=== PATIENT | male | born 1995 | race African-American/Black ===

== ENCOUNTER 2019-12-07 02:55 | Emergency (ER) | payer SELFPAY ==
[~2019-12-07] VITALS: Ht 188 cm; Wt 83.9 kg
[2019-12-07] MEDS ORDERED: OLANZAPINE 10 MG VIAL IM ONE (02:59)
--- NOTE | 2019-12-07 03:05 | NUR ---
PT BIBRA AND [employer] FOR BEHAVIORAL. PER [employer] PT WALKED UP TO [employer] SUP AND STATED HE IS SUICIDAL. UPON ASSESSMENT PT STATED HE IS NOT SUICIDAL NOR HI. DENIES PAIN. NO ACUTE DISTRESS NOTED. PT AMBULATED WITH STEADY GAIT. ABLE TO FOLLOW COMMANDS. PT PALCED IN BED 15 ON MONITOR AND PULSE OX. VSS. AWAITING MD FOR EVAL AND ORDERS.
[2019-12-07] MEDS: OLANZAPINE 10 MG VIAL IM ONE (03:11)
[2019-12-07 03:27] LABS: BASOPHILS # (AUTO) 0.1 /CMM (0.0-0.2); BASOPHILS % (AUTO) 0.6 % (0.0-2.0); EOSINOPHILS % (AUTO) 0.5 % (0.0-6.0); HEMATOCRIT 45 % (39-51); HEMOGLOBIN 14.9 g/dL (13.5-17.5); LYMPHOCYTES # (AUTO) 2.5 /CMM (0.8-4.8); LYMPHOCYTES % (AUTO) 25.4 % (20.0-44.0); MEAN CORPUSCULAR HGB CONC 33 g/dl (31.0-36.0); MEAN CORPUSCULAR VOLUME 91 fL (80-96); MONOCYTES # (AUTO) 0.6 /CMM (0.1-1.30); MONOCYTES % (AUTO) 6.2 % (2.0-12.0); NEUTROPHILS # (AUTO) 6.7 /CMM (1.8-8.9); NEUTROPHILS % (AUTO) 67.3 % (43.0-81.0); PLATELET COUNT (AUTO) 221 /CMM (150-450); RED BLOOD CELL COUNT(AUTO) 4.92 MIL/uL (4.5-6.0)
[2019-12-07 03:46] LABS: ALANINE AMINOTRANSFERASE 22 U/L (12-78); ALBUMIN 4.2 g/dL (3.4-5.0); ALCOHOL, BLOOD < 3 mg/dL (0-0); ALKALINE PHOSPHATASE 63 U/L (46-116); ASPARTATE AMINOTRANSFERASE 21 U/L (15-37); BILIRUBIN,DIRECT 0.1 mg/dL (0.0-0.2); BILIRUBIN,TOTAL 0.4 mg/dL (0.2-1.0); CALCIUM, SERUM 9.6 mg/dL (8.5-10.1); CARBON DIOXIDE 29 mmol/L (21-32); CHLORIDE 103 mmol/L (98-107); CREATININE 0.8 mg/dL (0.6-1.3); GLUCOSE 110 mg/dL (74-106); POTASSIUM 3.7 mmol/L (3.5-5.1); SODIUM SERUM 140 mmol/L (136-145); TOTAL PROTEIN, SERUM 7.2 g/dL (6.4-8.2); UREA NITROGEN, BLOOD 10 mg/dL (7-18)
[2019-12-07 03:50] LABS: ACETAMINOPHEN 0 ug/ml (10-30); SALICYLATE 0.6 mg/dL (2.8-20.0)
[2019-12-07 04:29] LABS: APPEARANCE,URINE Clear (CLEAR); BILIRUBIN,URINE Negative (NEGATIVE); BLOOD, URINE Negative Ery/uL (NEGATIVE); COLOR,URINE Yellow (YELLOW); KETONES,URINE Negative (NEGATIVE); LEUKOCYTE ESTERASE ,URINE Negative (NEGATIVE); NITRITE, URINE Negative (NEGATIVE); PH,URINE 8.5 (5.0-8.0); PROTEIN,URINE 30 mg/dl (NEGATIVE); UGLUCOSE Negative (NEGATIVE); UROBILINOGEN,URINE 0.2 EU/dL (0.2)
[2019-12-07 04:45] LABS: BACTERIA,URINE None seen /HPF (None Seen); SQUAMOUS EPITHELIAL CELL,UR Few /HPF (None Seen)
[2019-12-07 04:46] LABS: MUCUS,URINE Moderate /LPF (None Seen); URINE AMORPHOUS PHOSPHATES Many /HPF (None Seen)
--- NOTE | 2019-12-07 05:10 | NUR ---
PT AAOX4. AMBULATED TO THE RESTROOM. PER ASSESSMENT PT STATED HE IS NOT SI NOR HI. VSS. AWARE.
--- NOTE | 2019-12-07 05:36 | NUR ---
Patient discharged to home in stable condition. Written and verbal after care instructions given. Patient verbalizes understanding of instruction. Pt ambulated with steady gait. vss.
[2019-12-07 05:37] VITALS: BP 117/72
== END 2019-12-07 05:37 | disposition home or self-care (01) ==
LOC: ER 02:57
DX: F15.10 Other stimulant abuse, uncomplicated (principal)
CPT/HCPCS: 36415; 80048; 80076; 80305; 80307; 80329; 81001; 85025; 96372; 99283; G0480; J3490; 81000-TC

== ENCOUNTER 2020-01-02 11:47 | Emergency (ER) | payer SELFPAY ==
[~2020-01-02] VITALS: Ht 188 cm; Wt 83.9 kg
[2020-01-02] MEDS ORDERED: OLANZAPINE 10 MG VIAL IM ONE ×2 (12:00→12:05)
[2020-01-02 12:04] LABS: BASOPHILS % (AUTO) 0.6 % (0.0-2.0); EOSINOPHILS % (AUTO) 1.2 % (0.0-6.0); HEMATOCRIT 39 % (39-51); HEMOGLOBIN 13.4 g/dL (13.5-17.5); LYMPHOCYTES # (AUTO) 1.6 /CMM (0.8-4.8); LYMPHOCYTES % (AUTO) 20.1 % (20.0-44.0); MEAN CORPUSCULAR HGB CONC 34 g/dl (31.0-36.0); MEAN CORPUSCULAR VOLUME 90 fL (80-96); MONOCYTES # (AUTO) 0.6 /CMM (0.1-1.30); MONOCYTES % (AUTO) 6.9 % (2.0-12.0); NEUTROPHILS # (AUTO) 5.8 /CMM (1.8-8.9); NEUTROPHILS % (AUTO) 71.2 % (43.0-81.0); PLATELET COUNT (AUTO) 213 /CMM (150-450); RED BLOOD CELL COUNT(AUTO) 4.34 MIL/uL (4.5-6.0); WHITE BLOOD COUNT (AUTO) 8.1 K/uL (4.3-11.0)
[2020-01-02 12:13] LABS: CALCIUM, SERUM 9.2 mg/dL (8.5-10.1); CARBON DIOXIDE 24 mmol/L (21-32); CHLORIDE 107 mmol/L (98-107); CREATININE 0.7 mg/dL (0.6-1.3); GLUCOSE 90 mg/dL (74-106); POTASSIUM 3.3 mmol/L (3.5-5.1); SODIUM SERUM 141 mmol/L (136-145); UREA NITROGEN, BLOOD 13 mg/dL (7-18)
[2020-01-02 12:18] LABS: ALANINE AMINOTRANSFERASE 25 U/L (12-78); ALCOHOL, BLOOD 13 mg/dL (0-0); ALKALINE PHOSPHATASE 58 U/L (46-116); ASPARTATE AMINOTRANSFERASE 26 U/L (15-37); BILIRUBIN,DIRECT 0.3 mg/dL (0.0-0.2); BILIRUBIN,TOTAL 1.5 mg/dL (0.2-1.0); TOTAL PROTEIN, SERUM 7.1 g/dL (6.4-8.2)
--- NOTE | 2020-01-02 12:21 | NUR ---
BIBRA FROM THE STREET TO ER BED 6. AAOX3. NOT IN RESP DISTRESS, BREATHING EVEN AND UNLABORED. BROUGHT IN FOR BIZAARE BEHAVIOR AFTER BEING FOUND ON THE STREET. PT DENIES TO BE SUICIDAL NOR HOMICIDAL. PER REPORT, PT WAS IN THE STREET ACTING WEIRDLY. WAS AT THE BEDSIDE FOR EVAL.
[2020-01-02 12:22] LABS: ACETAMINOPHEN < 10 ug/ml (10-30); SALICYLATE < 2.8 mg/dL (2.8-20.0)
--- NOTE | 2020-01-02 13:30 | NUR ---
PT IN BED SLEEPING COMFORTABLE. BREATHING EVEN AND UNLABORED.
--- NOTE | 2020-01-02 15:50 | NUR ---
aware that urine has not yet been collected because pt is sleeping. nad noted
--- NOTE | 2020-01-02 16:20 | NUR ---
Cafe Aide met with the patient at bedside, pt was alert and orientatedx4. Patient is a homeless 24 year-old male. Patient denies alcohol and drug use. Patient denies suicidal/homicidial ideations. Patient would like resources for fci, food, and income. This SW to provide patient with this. SW to remain available for all needs.
--- NOTE | 2020-01-02 18:48 | NUR ---
PT IN BED SLEEPING. NAD NOTED
--- NOTE | 2020-01-02 19:08 | NUR ---
REPORT GIVEN TO UMESH MANUEL FOR DAKOTAH.
--- NOTE | 2020-01-02 21:01 | NUR ---
CALLED LAB REGARDING RUNNING URINE.
[2020-01-02 21:05] LABS: APPEARANCE,URINE Clear (CLEAR); BILIRUBIN,URINE SMALL (NEGATIVE); BLOOD, URINE Negative Ery/uL (NEGATIVE); KETONES,URINE Negative (NEGATIVE); LEUKOCYTE ESTERASE ,URINE Negative (NEGATIVE); NITRITE, URINE Negative (NEGATIVE); PH,URINE 5.5 (5.0-8.0); PROTEIN,URINE Trace mg/dl (NEGATIVE); UGLUCOSE Negative (NEGATIVE)
[2020-01-02 21:10] LABS: COLOR,URINE DARK YELLOW (YELLOW)
[2020-01-02 21:24] LABS: RBC,URINE 0-2 /HPF (0-2)
[2020-01-02 21:25] LABS: BACTERIA,URINE None seen /HPF (None Seen); SQUAMOUS EPITHELIAL CELL,UR None Seen /HPF (None Seen); WBC,URINE 0-2 /HPF (0-3)
--- NOTE | 2020-01-02 23:08 | NUR ---
Patient discharged to home in stable condition. Written and verbal after care instructions given. Patient verbalizes understanding of instruction. Pt ambulated with steady gait,. vss.
[2020-01-03 00:46] VITALS: BP 121/58
== END 2020-01-03 00:47 | disposition home or self-care (01) ==
LOC: ER 11:48
DX: F29 Unspecified psychosis not due to a substance or known physiological condition (principal)
CPT/HCPCS: 36415; 80048; 80076; 80305; 80307; 80329; 81001; 85025; 96372; 99285; G0480; J3490; 81000-TC

== ENCOUNTER 2020-01-24 12:32 | Emergency (ER) | payer OTHER ==
[~2020-01-24] VITALS: Ht 182.9 cm; Wt 89.8 kg
--- NOTE | 2020-01-24 12:38 | NUR ---
ARINA Fermin/PD OFFICERS FROM [facility], REPORTS "INTENTIONS TO HURT AND KILL HIMSELF", NO SPECIFIC PLAN AT THIS TIME. TO ER BED 13, HOOKED TO MONITOR, CHANGED TO HOSP GOWN, PROVIDED W WARM BLANKET, PATIENT CALM AND COOPERATIVE. BREATHING EVEN AND UNLABORED. SAFETY PRECAUTIONS APPLIED. SITTER AT BEDSIDE FOR SAFETY. DR STEVEN AT BEDSIDE FOR EVAL.
--- NOTE | 2020-01-24 12:49 | NUR ---
URINE SAMPLE COLLECTED AND SENT TO LAB
[2020-01-24 13:08] LABS: BASOPHILS % (AUTO) 0.5 % (0.0-2.0); HEMATOCRIT 41 % (39-51); HEMOGLOBIN 13.6 g/dL (13.5-17.5); LYMPHOCYTES # (AUTO) 2.2 /CMM (0.8-4.8); LYMPHOCYTES % (AUTO) 31.7 % (20.0-44.0); MEAN CORPUSCULAR HGB CONC 33 g/dl (31.0-36.0); MEAN CORPUSCULAR VOLUME 92 fL (80-96); MONOCYTES # (AUTO) 0.6 /CMM (0.1-1.30); MONOCYTES % (AUTO) 8.2 % (2.0-12.0); NEUTROPHILS % (AUTO) 57.6 % (43.0-81.0); PLATELET COUNT (AUTO) 242 /CMM (150-450); RED BLOOD CELL COUNT(AUTO) 4.47 MIL/uL (4.5-6.0); WHITE BLOOD COUNT (AUTO) 6.9 K/uL (4.3-11.0)
[2020-01-24 13:10] LABS: APPEARANCE,URINE Clear (CLEAR); BILIRUBIN,URINE Negative (NEGATIVE); BLOOD, URINE Negative Ery/uL (NEGATIVE); COLOR,URINE Yellow (YELLOW); KETONES,URINE Negative (NEGATIVE); LEUKOCYTE ESTERASE ,URINE Negative (NEGATIVE); NITRITE, URINE Negative (NEGATIVE); PROTEIN,URINE Negative (NEGATIVE); UGLUCOSE Negative (NEGATIVE)
[2020-01-24 13:14] LABS: CALCIUM, SERUM 8.8 mg/dL (8.5-10.1); CARBON DIOXIDE 29 mmol/L (21-32); CHLORIDE 108 mmol/L (98-107); CREATININE 0.7 mg/dL (0.6-1.3); GLUCOSE 90 mg/dL (74-106); POTASSIUM 3.6 mmol/L (3.5-5.1); SODIUM SERUM 144 mmol/L (136-145); UREA NITROGEN, BLOOD 9 mg/dL (7-18)
[2020-01-24 13:17] LABS: BACTERIA,URINE Rare /HPF (None Seen); RBC,URINE 0-2 /HPF (0-2); SQUAMOUS EPITHELIAL CELL,UR None Seen /HPF (None Seen); WBC,URINE 0-2 /HPF (0-3)
[2020-01-24 13:20] LABS: ALANINE AMINOTRANSFERASE 22 U/L (12-78); ALBUMIN 4.1 g/dL (3.4-5.0); ALKALINE PHOSPHATASE 72 U/L (46-116); ASPARTATE AMINOTRANSFERASE 16 U/L (15-37); BILIRUBIN,DIRECT 0.1 mg/dL (0.0-0.2); BILIRUBIN,TOTAL 0.5 mg/dL (0.2-1.0)
[2020-01-24 13:21] LABS: ACETAMINOPHEN 0 ug/ml (10-30); ALCOHOL, BLOOD < 3 mg/dL (0-0); SALICYLATE 0.8 mg/dL (2.8-20.0)
--- NOTE | 2020-01-24 14:25 | NUR ---
2:00pm This SW met with the patient at bedside. With the assistance of the sitter, patient answered this SW questions. Patient presented to [facility] ER by rescue ambulance and police. Per MD notes, patient reports intentions to hurt and kill somebody. Patient denies a mental health diagnosis. Patient denies auditory and visual hallucinations. Patient reports current suicidal ideation of injuring myself but does not report a method stating I dont know. This SW asked the patient if he would be willing to enter voluntary psychiatric treatment, patient was receptive to this plan of treatment stating "yes". This SW contacted admitting for presumptive Medical and this SW contacted José Miguel at [facility] to help further the voluntary hospitalization treatment. Pending presumptive Medical to fax clinicals to [facility] Intake .
--- NOTE | 2020-01-24 14:51 | NUR ---
PATIENT IN BED ASLEEP, EASILY AROUSABLE BY VOICE. HOOKED TO MONITOR. VSS. WILL CONTINUE TO MONITOR. SITTER AT BEDSIDE FOR SAFETY.
--- NOTE | 2020-01-24 15:38 | NUR ---
Methods Analyst contacted Admitting [phone] about patient's presumptive Medical. This SW was informed that patient has [facility]. This SW to contact José Miguel at [facility] to have them run patient benefits.
--- NOTE | 2020-01-24 15:47 | NUR ---
This SW faxed clinicals to [facility] .
--- NOTE | 2020-01-24 15:47 | NUR ---
José Miguel at [facility] verified benefits and asked this SW to fax over clinicals regarding this patient.
--- NOTE | 2020-01-24 16:42 | NUR ---
PATIENT IN BED ASLEEP, TUCKED IN BLANKET, EASILY AROUSABLE BY VOICE. HOOKED TO MONITOR. VSS. WILL CONTINUE TO MONITOR. SITTER AT BEDSIDE FOR SAFETY.
--- NOTE | 2020-01-24 17:27 | NUR ---
ACCEPTED AT [facility] DR. NOLASCO NURSING FINANCIAL ANALYSIS CONSULTANT PHONE FOR REPORT #[phone] EXT [phone]
--- NOTE | 2020-01-24 17:32 | NUR ---
CALLED [facility] FOR BLS HUMAN RESOURCE OFFICER. ETA [phone]
--- NOTE | 2020-01-24 17:33 | NUR ---
REPORT GIVEN TO [facility].
[2020-01-24 19:05] VITALS: BP 101/62
--- NOTE | 2020-01-24 19:05 | NUR ---
ENDORSEMENT GIVEN TO DARYL CALVO FOR DAKOTAH
--- NOTE | 2020-01-24 19:42 | NUR ---
brook in facility, report given to transport. all papers given. pt to be transported to [facility] for vol psych. pt remains stable. -sob. -cp. vss. not in any acute distress.
== END 2020-01-24 19:56 ==
LOC: ER 12:40
DX: R45.851 Suicidal ideations (principal); F32.9 Major depressive disorder, single episode, unspecified; Z59.0 Homelessness
CPT/HCPCS: 36415; 80048; 80076; 80305; 80307; 80329; 81001; 85025; 99285; G0480; 81000-TC

== ENCOUNTER 2020-02-08 02:19 | Emergency (ER) | payer OTHER ==
[~2020-02-08] VITALS: Ht 188 cm; Wt 86.2 kg
--- NOTE | 2020-02-08 02:22 | NUR ---
PT AAOX4. BIBRA 80 FROM [facility] WITH PLAN TO "JUMP OFF A BRIDGE." PT PLACED IN BED 15 ON MONITOR AND PULSE OX. SITTER AT BEDSIDE. PT PLACED IN HOSPITAL GOWN, BELONGINGS PLACED IN LOCKER.
--- NOTE | 2020-02-08 02:43 | NUR ---
URINE COLLECTED AND SENT TO LAB
[2020-02-08 02:48] LABS: BASOPHILS % (AUTO) 0.2 % (0.0-2.0); EOSINOPHILS % (AUTO) 1.4 % (0.0-6.0); HEMATOCRIT 45 % (39-51); HEMOGLOBIN 15.1 g/dL (13.5-17.5); LYMPHOCYTES # (AUTO) 1.3 /CMM (0.8-4.8); LYMPHOCYTES % (AUTO) 11.8 % (20.0-44.0); MEAN CORPUSCULAR HGB CONC 34 g/dl (31.0-36.0); MEAN CORPUSCULAR VOLUME 91 fL (80-96); MONOCYTES # (AUTO) 0.8 /CMM (0.1-1.30); MONOCYTES % (AUTO) 7.1 % (2.0-12.0); NEUTROPHILS # (AUTO) 8.4 /CMM (1.8-8.9); NEUTROPHILS % (AUTO) 79.5 % (43.0-81.0); PLATELET COUNT (AUTO) 233 /CMM (150-450); RED BLOOD CELL COUNT(AUTO) 4.95 MIL/uL (4.5-6.0); WHITE BLOOD COUNT (AUTO) 10.6 K/uL (4.3-11.0)
--- NOTE | 2020-02-08 03:01 | NUR ---
SUPERVISOR FRAME ASSEMBLY AT BEDSIDE FOR LABS
[2020-02-08 03:04] LABS: ALANINE AMINOTRANSFERASE 17 U/L (12-78); ALBUMIN 4.1 g/dL (3.4-5.0); ALCOHOL, BLOOD < 3 mg/dL (0-0); ALKALINE PHOSPHATASE 74 U/L (46-116); ASPARTATE AMINOTRANSFERASE 15 U/L (15-37); BILIRUBIN,DIRECT 0.2 mg/dL (0.0-0.2); BILIRUBIN,TOTAL 1.1 mg/dL (0.2-1.0); CALCIUM, SERUM 9.4 mg/dL (8.5-10.1); CARBON DIOXIDE 26 mmol/L (21-32); CHLORIDE 105 mmol/L (98-107); CREATININE 0.7 mg/dL (0.6-1.3); GLUCOSE 94 mg/dL (74-106); POTASSIUM 3.9 mmol/L (3.5-5.1); SODIUM SERUM 141 mmol/L (136-145); TOTAL PROTEIN, SERUM 7.6 g/dL (6.4-8.2); UREA NITROGEN, BLOOD 6 mg/dL (7-18)
[2020-02-08 03:09] LABS: ACETAMINOPHEN 0 ug/ml (10-30); SALICYLATE < 0.2 mg/dL (2.8-20.0)
[2020-02-08 03:12] LABS: APPEARANCE,URINE CLEAR (CLEAR); BILIRUBIN,URINE NEGATIVE (NEGATIVE); BLOOD, URINE NEGATIVE Ery/uL (NEGATIVE); COLOR,URINE YELLOW (YELLOW); KETONES,URINE NEGATIVE (NEGATIVE); LEUKOCYTE ESTERASE ,URINE NEGATIVE (NEGATIVE); NITRITE, URINE NEGATIVE (NEGATIVE); PROTEIN,URINE 30 mg/dl (NEGATIVE); UGLUCOSE NEGATIVE (NEGATIVE); UROBILINOGEN,URINE 0.2 EU/dL (0.2)
[2020-02-08 03:26] LABS: BACTERIA,URINE Few /HPF (None Seen); SPERM,URINE Few /HPF (None Seen); SQUAMOUS EPITHELIAL CELL,UR Rare /HPF (None Seen)
--- NOTE | 2020-02-08 04:05 | NUR ---
Patient is resting comfortably in bed with eyes closed. Easily aroused. VSS.
--- NOTE | 2020-02-08 05:50 | NUR ---
CLINICAL FAXED TO [facility] FOR VOLUNTARY PSYCH ADMISSION.
--- NOTE | 2020-02-08 06:22 | NUR ---
CLINICAL UNDER REVIEW PER CALVIN AT [facility].
--- NOTE | 2020-02-08 07:05 | NUR ---
[facility] INTAKE OF [facility]NER DENIES PT TRANSFER AT THIS TIME.
--- NOTE | 2020-02-08 08:21 | NUR ---
This SW met with the patient at bedside. Patient answered this SW questions. Patient presented to [facility] ER by rescue ambulance and police. Per MD notes, patient reports patient wants to jump off a bridge. Patient denies a mental health diagnosis. Patient denies auditory and visual hallucinations. Patient asked this SW to return to [facility]. This SW to contact José Miguel at [facility] as patient was denied overnight. SW to remain available for all needs regarding this patient.
--- NOTE | 2020-02-08 09:26 | NUR ---
PER THOMAS RENE, PATIENT IS ACCEPTED AT [facility] BY DR. MEJIA GIVE REPORT AT 10AM [phone] EXT [phone]
--- NOTE | 2020-02-08 11:51 | NUR ---
Per Bhakti Massey ambulance for BLS transport eta is [phone]
--- NOTE | 2020-02-08 12:19 | NUR ---
updated transport eta is [phone]
[2020-02-08 13:58] VITALS: BP 133/59
--- NOTE | 2020-02-08 13:58 | NUR ---
REPORT GIVEN TO ZAIRE CALVO FOR DAKOTAH.
--- NOTE | 2020-02-08 13:59 | NUR ---
REPORT GIVEN TO FLIGHT DIRECTOR. PATIENT A/OX4, AMBULATORY WITH STEADY GAIT. NO DISTRESS NOTED. PATIENT TRANSFERRED TO [facility] IN STABLE CONDITION.
== END 2020-02-08 14:03 ==
LOC: ER 02:19
DX: R45.851 Suicidal ideations (principal); R45.1 Restlessness and agitation; Z59.0 Homelessness
CPT/HCPCS: 36415; 80048; 80076; 80305; 80307; 80329; 81001; 85025; 87086; 99285; G0480; 81000-TC

== ENCOUNTER 2021-05-28 21:11 | Emergency (ER) | payer OTHER ==
[~2021-05-28] VITALS: Ht 188 cm; Wt 97.5 kg
--- NOTE | 2021-05-28 21:48 | NUR ---
ARINA AND [employer] TO ER BED 11. AAOX4. NOT IN RESP DISTRESS. AMBULATORY. BROUGHT SEEKING FOR VOLUNTARY ADMISSION FOR SUICIDAL IDEATION WHERE HE IS HEARING VOICES TELLING HIM TO JUMP OFF A BRIDGE. PT CAME TO FIRE STATION SEEKING TO BE BROUGHT TO THE HOSPITAL. WAS AT THE BEDSIDE FOR EVAL.
[2021-05-28 22:15] LABS: BASOPHILS # (AUTO) 0.1 K/uL (0.0-0.2); BASOPHILS % (AUTO) 0.7 % (0.0-2.0); EOSINOPHILS % (AUTO) 1.7 % (0.0-6.0); HEMATOCRIT 42 % (39-51); HEMOGLOBIN 14.1 g/dL (13.5-17.5); LYMPHOCYTES % (AUTO) 27.2 % (20.0-44.0); MEAN CORPUSCULAR HGB CONC 34 g/dl (31.0-36.0); MEAN CORPUSCULAR VOLUME 91 fL (80-96); MONOCYTES # (AUTO) 0.7 K/uL (0.1-1.30); MONOCYTES % (AUTO) 8.9 % (2.0-12.0); NEUTROPHILS # (AUTO) 4.6 K/uL (1.8-8.9); NEUTROPHILS % (AUTO) 61.5 % (43.0-81.0); PLATELET COUNT (AUTO) 243 K/uL (150-450); RED BLOOD CELL COUNT(AUTO) 4.61 MIL/uL (4.5-6.0); WHITE BLOOD COUNT (AUTO) 7.5 K/uL (4.3-11.0)
[2021-05-28 22:26] LABS: BILIRUBIN,URINE NEGATIVE (NEGATIVE); COLOR,URINE YELLOW (YELLOW); LEUKOCYTE ESTERASE ,URINE NEGATIVE (NEGATIVE); NITRITE, URINE NEGATIVE (NEGATIVE); PROTEIN,URINE NEGATIVE (NEGATIVE); UGLUCOSE NEGATIVE (NEGATIVE); UROBILINOGEN,URINE 0.2 EU/dL (0.2)
[2021-05-28 22:26] LABS: CALCIUM, SERUM 8.9 mg/dL (8.5-10.1); CARBON DIOXIDE 26 mmol/L (21-32); CHLORIDE 106 mmol/L (98-107); CREATININE 0.9 mg/dL (0.6-1.3); GLUCOSE 103 mg/dL (74-106); POTASSIUM 3.5 mmol/L (3.5-5.1); SODIUM SERUM 141 mmol/L (136-145); UREA NITROGEN, BLOOD 12 mg/dL (7-18)
[2021-05-28 22:34] LABS: ALANINE AMINOTRANSFERASE 35 U/L (12-78); ALBUMIN 3.9 g/dL (3.4-5.0); ALKALINE PHOSPHATASE 59 U/L (46-116); ASPARTATE AMINOTRANSFERASE 18 U/L (15-37); BILIRUBIN,DIRECT 0.1 mg/dL (0.0-0.2); BILIRUBIN,TOTAL 0.5 mg/dL (0.2-1.0); TOTAL PROTEIN, SERUM 7.1 g/dL (6.4-8.2)
[2021-05-28 22:35] LABS: ACETAMINOPHEN 0 ug/ml (10-30); ALCOHOL, BLOOD < 3 mg/dL (0-0)
--- NOTE | 2021-05-28 22:49 | NUR ---
COVID ANTIGEN SWAB COLLECTED AND SENT TO LAB
--- NOTE | 2021-05-29 05:04 | NUR ---
CLINICALS FAXED TO [facility]
--- NOTE | 2021-05-29 08:02 | NUR ---
CALLED [facility] THEY HAVE THE CLINICALS AND AWAITING FEEDBACK.
--- NOTE | 2021-05-29 09:52 | NUR ---
PATIENT IN BED, AWAKE, ON MONITOR, VSS. SITTER AT BEDSIDE FOR SAFETY.
[2021-05-29 10:06] VITALS: BP 136/69
--- NOTE | 2021-05-29 10:32 | NUR ---
PATIENT VERBALIZES THAT HE IS NO LONGER SUICIDAL AND WOULD LIKE TO GO HOME. MADE DR MURCIA AWARE.
--- NOTE | 2021-05-29 11:01 | NUR ---
Patient eloped from facility. ER MD notified.
== END 2021-05-29 11:42 | disposition left against medical advice (07) ==
LOC: ER 21:13
DX: F23 Brief psychotic disorder (principal); R45.851 Suicidal ideations; Z59.02 Unsheltered homelessness; Z20.822 Contact with and (suspected) exposure to COVID-19; Z53.29 Procedure and treatment not carried out because of patient's decision for other reasons; F12.10 Cannabis abuse, uncomplicated
CPT/HCPCS: 36415; 80048; 80076; 80143; 80307; 80320; 81003; 85025; 87426; 99285; C9803; G0480

== ENCOUNTER 2021-09-09 02:22 | Emergency (ER) | payer OTHER ==
[~2021-09-09] VITALS: Ht 188 cm; Wt 88.5 kg
--- NOTE | 2021-09-09 02:39 | NUR ---
URINE SAMPLE COLLECTED AND SENT TO LAB
--- NOTE | 2021-09-09 02:40 | NUR ---
COVID ANTIGEN SWAB COLLECTED AND SENT TO LAB
--- NOTE | 2021-09-09 02:49 | NUR ---
BIBRA FROM THE STREET TO ER BED 18. AAOX4. NOT IN RESP DISTRESS. AMBULATORY. BROUGHT IN FOR SUICIDAL IDEATION WITH PLAN TO JUMP OFF A BRIDGE. DENIES HOMICIDAL IDEATION.PT IS GOWNED, BELONGINGS PALCED IN LOCKER AND SITTER WITHIN SIGHT. WAS AT THE BEDSIDE FOR EVAL. ORDERS RECEIVED, NOTED AND CARRIED OUT
[2021-09-09 03:00] LABS: BILIRUBIN,URINE NEGATIVE (NEGATIVE); COLOR,URINE YELLOW (YELLOW); LEUKOCYTE ESTERASE ,URINE NEGATIVE (NEGATIVE); NITRITE, URINE NEGATIVE (NEGATIVE); PROTEIN,URINE NEGATIVE (NEGATIVE); UGLUCOSE NEGATIVE (NEGATIVE); UROBILINOGEN,URINE 0.2 EU/dL (0.2)
[2021-09-09 03:02] LABS: BASOPHILS # (AUTO) 0.1 K/uL (0.0-0.2); BASOPHILS % (AUTO) 0.6 % (0.0-2.0); EOSINOPHILS % (AUTO) 2.1 % (0.0-6.0); HEMATOCRIT 47 % (39-51); HEMOGLOBIN 15.5 g/dL (13.5-17.5); LYMPHOCYTES # (AUTO) 2.7 K/uL (0.8-4.8); LYMPHOCYTES % (AUTO) 23.2 % (20.0-44.0); MEAN CORPUSCULAR HGB CONC 33 g/dl (31.0-36.0); MEAN CORPUSCULAR VOLUME 89 fL (80-96); MONOCYTES # (AUTO) 0.9 K/uL (0.1-1.30); MONOCYTES % (AUTO) 7.4 % (2.0-12.0); NEUTROPHILS # (AUTO) 7.8 K/uL (1.8-8.9); NEUTROPHILS % (AUTO) 66.7 % (43.0-81.0); PLATELET COUNT (AUTO) 270 K/uL (150-450); RED BLOOD CELL COUNT(AUTO) 5.24 MIL/uL (4.5-6.0); WHITE BLOOD COUNT (AUTO) 11.7 K/uL (4.3-11.0)
[2021-09-09 03:03] LABS: ALANINE AMINOTRANSFERASE 21 U/L (12-78); ALBUMIN 4.1 g/dL (3.4-5.0); ALKALINE PHOSPHATASE 81 U/L (46-116); ASPARTATE AMINOTRANSFERASE 17 U/L (15-37); BILIRUBIN,TOTAL 0.4 mg/dL (0.2-1.0); CALCIUM, SERUM 9.2 mg/dL (8.5-10.1); CARBON DIOXIDE 27 mmol/L (21-32); CHLORIDE 106 mmol/L (98-107); CREATININE 0.8 mg/dL (0.6-1.3); GLUCOSE 103 mg/dL (74-106); POTASSIUM 4.1 mmol/L (3.5-5.1); SODIUM SERUM 141 mmol/L (136-145); TOTAL PROTEIN, SERUM 7.7 g/dL (6.4-8.2); UREA NITROGEN, BLOOD 11 mg/dL (7-18)
[2021-09-09 03:32] LABS: ACETAMINOPHEN < 2 ug/ml (10-30); ALCOHOL, BLOOD < 3 mg/dL (0-0)
--- NOTE | 2021-09-09 04:14 | NUR ---
PT ASKED TO LEAVE AND DOES NO LONGER FEEL SUICIDAL. PT VERBALIZED THAT HE JUST ONLY WANTED A BED AND FOOD. PT PROVIDED WITH FOOD AND LEFT WITH ALL HIS BELONGINGS. MADE AWARE
[2021-09-09 05:12] VITALS: BP 153/92
== END 2021-09-09 04:14 | disposition home or self-care (01) ==
LOC: ER 02:23
DX: R45.851 Suicidal ideations (principal); Z59.00 Homelessness unspecified; Z20.822 Contact with and (suspected) exposure to COVID-19; F17.200 Nicotine dependence, unspecified, uncomplicated
CPT/HCPCS: 36415; 80048; 80076; 80143; 80307; 80320; 81003; 85025; 87426; 99285; C9803; G0480

== ENCOUNTER 2021-09-11 21:09 | Emergency (ER) | payer OTHER ==
[~2021-09-11] VITALS: Ht 172.7 cm; Wt 93.0 kg
[2021-09-11 21:37] LABS: BASOPHILS # (AUTO) 0.1 K/uL (0.0-0.2); BASOPHILS % (AUTO) 0.6 % (0.0-2.0); EOSINOPHILS % (AUTO) 3.3 % (0.0-6.0); HEMATOCRIT 46 % (39-51); HEMOGLOBIN 15.4 g/dL (13.5-17.5); LYMPHOCYTES # (AUTO) 2.4 K/uL (0.8-4.8); LYMPHOCYTES % (AUTO) 26.6 % (20.0-44.0); MEAN CORPUSCULAR HGB CONC 33 g/dl (31.0-36.0); MEAN CORPUSCULAR VOLUME 89 fL (80-96); MONOCYTES # (AUTO) 0.7 K/uL (0.1-1.30); MONOCYTES % (AUTO) 7.6 % (2.0-12.0); NEUTROPHILS # (AUTO) 5.5 K/uL (1.8-8.9); NEUTROPHILS % (AUTO) 61.9 % (43.0-81.0); PLATELET COUNT (AUTO) 254 K/uL (150-450); WHITE BLOOD COUNT (AUTO) 8.9 K/uL (4.3-11.0)
[2021-09-11 21:45] LABS: CALCIUM, SERUM 8.9 mg/dL (8.5-10.1); CARBON DIOXIDE 27 mmol/L (21-32); CHLORIDE 106 mmol/L (98-107); CREATININE 0.7 mg/dL (0.6-1.3); GLUCOSE 132 mg/dL (74-106); POTASSIUM 3.5 mmol/L (3.5-5.1); SODIUM SERUM 138 mmol/L (136-145); UREA NITROGEN, BLOOD 9 mg/dL (7-18)
--- NOTE | 2021-09-11 21:45 | NUR ---
BIBRA [address] C/O SI WITH NO PLAN ON HOLD BY [employer]. PATIENT ALERT AND ORIENTED X3. AMBULATORY WITH NON LABORED BREATHING IN BED 10 AWAITING MD VELASQUEZ.
--- NOTE | 2021-09-11 21:46 | NUR ---
ER BALLAST INSPECTOR @ BEDSIDE
--- NOTE | 2021-09-11 21:46 | NUR ---
COVID SWAB DONE AND SENT TO LAB
[2021-09-11 21:50] LABS: ALANINE AMINOTRANSFERASE 17 U/L (12-78); ALBUMIN 3.7 g/dL (3.4-5.0); ALCOHOL, BLOOD < 3 mg/dL (0-0); ALKALINE PHOSPHATASE 80 U/L (46-116); ASPARTATE AMINOTRANSFERASE 9 U/L (15-37); BILIRUBIN,DIRECT 0.1 mg/dL (0.0-0.2); BILIRUBIN,TOTAL 0.3 mg/dL (0.2-1.0); TOTAL PROTEIN, SERUM 6.9 g/dL (6.4-8.2)
[2021-09-11 21:53] LABS: ACETAMINOPHEN < 0 ug/ml (10-30)
--- NOTE | 2021-09-11 22:00 | NUR ---
PATIENT STATES HE NOW HAS A PLAN JUMP OFF BRIDGE FOR SUICIDAL ATTEMPT.
--- NOTE | 2021-09-11 22:42 | NUR ---
URINE COLLECTED AND SENT TO LAB
[2021-09-11 22:51] LABS: BILIRUBIN,URINE NEGATIVE (NEGATIVE); COLOR,URINE YELLOW (YELLOW); LEUKOCYTE ESTERASE ,URINE NEGATIVE (NEGATIVE); NITRITE, URINE NEGATIVE (NEGATIVE); PH,URINE 6.5 (5.0-8.0); PROTEIN,URINE NEGATIVE (NEGATIVE); UGLUCOSE NEGATIVE (NEGATIVE)
--- NOTE | 2021-09-11 23:25 | NUR ---
TAHIR- CRISIS BENCH ASSEMBLY INSPECTOR PAGED FOR EVAL.
--- NOTE | 2021-09-12 08:39 | NUR ---
BECKIE ZAZUETA REQUESTED HOLD TO BE FAXED TO [phone]
--- NOTE | 2021-09-12 10:53 | NUR ---
"SS Consult: SS Consult requested for pt. on a 5150 hold. The pt. is a 26 year old male on a 5150 hold for DTS. Per hold pt. stated he wanted to kill himself by jumping off a bridge and was hearing voices. Upon SS Consult the pt. is laying in bed awake, alert & oriented x 4. The pt. appears very disheveled and makes poor eye contact. Pt. has some latency in his speech.The pt. denies SI/HI and states he does experience auditory & visual hallucinations. Pt. thought process is WNL. Pt. remained calm & cooperative throughout interview. Pt. stated he is experiencing homelessness and stays in the [place] area. Pt. denies drug or alcohol abuse. Pt. denies mental health ilness. Pt. states he is ambulatory and independent with all his ADL's. SW explored pt.'s support system. Pt. states he is not in communication with them. Plan: SW provided pt. with homeless resources and pt. accepted them. Pt. refused to sign homeless waiver ad it was placed int he pt.'s chart. MARBIN called Senior Patient Account Representative, Art [phone] to evaluate this pt. Art is agreeable. MARBIN disscussed case with Ralph MUNROE. Year-round shelters: [facility] [address] [place] [address] ; [facility] [address] [place] [address]; [place] [facility] [address] [facility] [address] Winter Shelters: SPA 2 | [facility] Monsterrovider: [facility] Address: Confidential (call for location ) Population Served: Coed # of Beds: 57 SPA 4 | [facility] Provider: [facility] Address: [address] [place] [address] # of Beds: 49 Population Served: Coed SPA 6 | [facility] Provider: [facility] Last Address: [address] [place] [address] # of Beds: 49 Population Served: Coed [facility] Provider: Yoan Barragan DCD Address: [address] [facility] [address] # of Beds: 20 Population Served: Women DAGOBERTO Facility Provider: [facility] Last Address: [address] [facility] [address] # of Beds: 30 Population Served: Women SPA 8 | [facility] Library Provider: Yoon [facility] [place] Address: [address] [facility] [address] # of Beds: 65 Population Served: Coed Hygiene: [facility]: [address] [facility] [facility] ; [facility] [address] [facility] ; [facility] 6907 [facility] . Food Resources: [place] [employer] [facility] at [facility]- 57[address] [facility]; Meet Each Need with Dignity ([facility]) [address] [facility]; [facility] Food Pantry 4319 [facility]; [facility] 8509 [facility]. Mental Health resources provided: [facility] [address] [place], [place] [id number] ; [facility] Mental Health [place] [address] [facility] [address], [place], [place] [phone] ; Elaine Cuellar [facility] [address] [place] [address] ; [facility] [address] [place], [place] [phone] Healthcare Clinics: [facility] [address] [facility], [address] [place]. [place] ; [facility] [address] [facility] [address] [place] [address]; [facility] [address] [facility] [place] 3129[address] [phone]) [phone] Counseling--Outpatient [facility] [address], [address] [place], [place] [address] (Specializes in in-depth psychotherapy for emotional distress: anxiety, depression, interpersonal conflicts, life transitions, childhood abuse) [facility] [address] [place], [place] [phone] (Assist with solving problem marital difficulties, separation & divorce, aging parents, & grief, chronic & terminal illness) [facility] [address] [place] [address] (Deal with loss & grief, anxiety, marital difficulties) Homebound/Mental Health Services [address] [facility] [address] [place] [address] (Provide in-home mental services to people who are incapable of leaving their homes) Organization for Needs of the Elderly Senior Service/Resource Center [address] [address] [place] [address] [facility] [address] [place], [place] [address] PSYCHIATRIC OUTPATIENT SERVICES [facility] Partial Hospitalization and Intensive Outpatient Program (Managed Care and [place] Only)[address] [facility] [phone] [facility] Partial Hospitalization and Outpatient [id number] [facility] [address] [place], [place] [phone] [facility] Mental Health [place] Dju52774 [facility] [address] [place], [place] [phone] [facility] Partial Hospitalization and Outpatient [id number] eli[place]annac[place], [phone] Substance Abuse resources provided included: [facility] Substance Abuse Self-Helpline (SAS) ; CRI -HELP [address] [facility]. [place] [address] ; [facility] [address] [facility] [address] ; [facility] Rehabilitation [facility] [address] [place] [address] [facility] [address] ; [facility] [address] [facility] [address] ; [facility] [address] [facility] [address] ; [facility] [address] [facility] [address] [id number] ; [facility] Substance Abuse Helpline(SAS)[facility] ; [facility] ; [facility]; [facility]; Cri[facility]Help [place]; [facility] [place] [address]; [place] [facility] [place]; [facility] [place]; [facility] [place]; [facility]'s [place], [facility]. [place]; Alcoholics Anonymous -SFV; Zf-Ozti-Fewjeqj ; Marijuana Anonymous -SFV; Narcotics Anonymous www.na.org;"
--- NOTE | 2021-09-12 12:20 | NUR ---
SEEN BY CLINICIAN ART, REFER TO CHART
--- NOTE | 2021-09-12 12:35 | NUR ---
Patient discharged to home in stable condition. Written and verbal after care instructions given. Patient verbalizes understanding of instruction.
[2021-09-12 12:37] VITALS: BP 124/77
== END 2021-09-12 12:37 | disposition home or self-care (01) ==
LOC: ER 21:13
DX: R45.851 Suicidal ideations (principal); Z59.00 Homelessness unspecified; F17.200 Nicotine dependence, unspecified, uncomplicated; Z20.822 Contact with and (suspected) exposure to COVID-19
CPT/HCPCS: 36415; 80048; 80076; 80143; 80307; 80320; 81003; 85025; 87426; 99285; C9803; G0480